=== PATIENT | female | born 1955 ===

== ENCOUNTER 2017-12-07 12:30 | Inpatient (IN) | payer OTHER ==
[~2017-12-07] VITALS: Ht 160 cm; Wt 79.8 kg
[2018-01-19] VITALS (14 sets, daily range): BP systolic 134–176; BP diastolic 60–88
[2018-01-19] MEDS ORDERED: LR 1000ml 1,000 ML IVLG SCH (06:31)
[2018-01-19] MEDS ORDERED: DiphenhydrAMINE 50mg/ml Inj IVP PRN (06:45)
[2018-01-19] MEDS ORDERED: Midazolam 2mg/2ml Inj IVP PRN (06:45)
[2018-01-19] MEDS ORDERED: Atropine Inj 1mg/10ml Syr IV PRN (06:45)
[2018-01-19] MEDS ORDERED: Acetaminophen (Non formulary) 100 ML IV ONE (06:45)
[2018-01-19] MEDS ORDERED: Metoclopramide 10mg/2ml Inj IVP PRN (06:45)
[2018-01-19] MEDS ORDERED: Ketorolac 30mg Inj IV PRN ×2 (06:45)
[2018-01-19] MEDS ORDERED: LORazepam Inj 2mg/ml 1ml IV PRN (06:45)
[2018-01-19] MEDS ORDERED: fentaNYL 100 mcg/2 mL IV PRN (06:45)
[2018-01-19] MEDS ORDERED: HYDROcodone/Acetamin 7.5/325 tab ORAL PRN ×2 (06:45→13:15)
[2018-01-19] MEDS ORDERED: Labetalol 5mg/ml 20ml vial IV PRN (06:45)
[2018-01-19] MEDS ORDERED: Norco 5mg/325mg tab ORAL PRN (06:45)
[2018-01-19] MEDS ORDERED: oxyCODONE HCL/Acetaminophen 5/325mg ORAL PRN (06:45)
[2018-01-19] MEDS ORDERED: Hydromorphone 0.5mg/0.5ml inj IVP PRN (06:45)
[2018-01-19] MEDS ORDERED: Thrombin 5000 units TOPIC ONE (09:09)
[2018-01-19] MEDS ORDERED: Bacitracin 50000 Units Vial IRRIG ONE (09:09)
[2018-01-19] MEDS ORDERED: Thrombin 5000 units spray kit TOPIC ONE (09:10)
[2018-01-19] MEDS ORDERED: Vancomycin 1gm inj IVPB ONE (09:10)
[2018-01-19] MEDS ORDERED: Gelfoam Absorbable 1gm powder pkt TOPIC ONE (09:11)
[2018-01-19] MEDS ORDERED: NS Irrig 1000ml IRRIG ONE (09:11)
[2018-01-19] MEDS ORDERED: LISINOPRIL20 MG ORAL (09:23)
[2018-01-19] MEDS ORDERED: METFORMIN HCL500 M1 ORAL (09:23)
[2018-01-19] MEDS ORDERED: SIMVASTATIN40 MG ORAL (09:23)
--- NOTE | 2018-01-19 09:26 | Anethesia Preoperative Eval ---
Anesthesia Pre-op PMH/ROS General Date of Evaluation: Jan 19, 2018 Time of Evaluation: 09:26 Anesthesiologist: Tex ASA Score: ASA 3 Mallampati Score Class I : Soft palate, uvula, fauces, pillars visible Class II: Soft palate, uvula, fauces visible Class III: Soft palate, base of uvula visible Class IV: Only hard plate visible Mallampati Classification: Class II Surgeon: Vince Diagnosis: Neck Pain Surgical Procedure: ACDF C5-6, C6-7 Anesthesia History: none Family History: no anesthesia problems Allergies: Coded Allergies: PENICILLINS (Verified Allergy, Severe, 01/19/18) HIVES AND ITCHING Medications: see eMAR Past Medical History Cardiovascular: Reports: HTN, other - HL Gastrointestinal/Genitourinary: Reports: GERD Endocrine: Reports: DM Other: obesity - BMI 32 PSxH Narrative: Cholecystectomy Anesthesia Pre-op Phys. Exam Physician Exam Last Vital Signs Date Time Temp Pulse Resp B/P (MAP) Pulse Ox O2 Delivery O2 Flow Rate FiO2 01/19/18 09:10 98.2 86 18 149/88 95 Room Air 98.2 Constitutional: NAD Neurologic: CN 2-12 intact Cardiovascular: RRR Respiratory: CTA Gastrointestinal: S/NT/ND Airway Exam Mallampati Score: Class II MO: limited ROM: limited Teeth: intact Anesthesia Pre-op A/P Risk Assessment & Plan Assessment: ASA 3 Plan: GA, BIS, GlideScope Go Status Change Before Surgery: No Pre-Antibiotics Dru Grams Ancef IV Given Within 1 Hr of Incision: Yes Time Given: 09:46 Elbert Nice MD Jan 19, 2018 09:26
--- NOTE | 2018-01-19 09:27 | Immediate Post-Op Evaluation ---
Immediate Post-Op Evalulation Immediate Post-Op Evalulation Procedure: ACDF C5-6, C6-7 Date of Evaluation: Jan 19, 2018 Time of Evaluation: 13:15 IV Fluids: 1000 LR Blood Products: 0 Estimated Blood Loss: 75 Urinary Output: 0 Blood Pressure Systolic: 172 Blood Pressure Diastolic: 76 Pulse Rate: 91 Respiratory Rate: 16 O2 Sat by Pulse Oximetry: 95 Temperature (Fahrenheit): 97.7 Pain Score (1-10): 3 Nausea: No Vomiting: No Complications 0 Patient Status: awake, reacts, patent, extubated, none Hydration Status: adequate Dru grams Ancef IV Given Within 1 Hr of Incision: Yes Time Given: 09:46 Elbert Nice MD Jan 19, 2018 09:27
--- NOTE | 2018-01-19 09:27 | Pre-Procedure Note/Attestation ---
Pre-Procedure Note/Attestation Complete Prior to Procedure Planned Procedure: right Procedure Narrative: C5-7 ACDF Indications for Procedure Pre-Operative Diagnosis: C5-7 stenosis Attestation I attest that I discussed the nature of the procedure; its benefits; risks and complications; and alternatives (and the risks and benefits of such alternatives ), prior to the procedure, with the patient (or the patient's legal customer development representative). I attest that, if there was a reasonable possibility of needing a blood transfusion, the patient (or the patient's legal customer development representative) was given the [facility] standardized written summary, pursuant to the [place] Blood Safety Act ([place] Health and Safety Code # 1645, as amended). I attest that I re-evaluated the patient just prior to the surgery and that there has been no change in the patient's H&P, except as documented below: Mani Clarke Jan 19, 2018 09:27
[2018-01-19] MEDS ORDERED: Glycopyrrolate 0.2mg/ml 1ml Vial ONE (09:30)
[2018-01-19] MEDS ORDERED: Lidocaine 1% Plain 30 ml INJ ONE (09:30)
[2018-01-19] MEDS ORDERED: Sterile Water Irrig 1000ml IRRIG ONE (09:30)
[2018-01-19] MEDS ORDERED: Lidocaine 1% MPF 10mg/ml 5ml ONE (09:30)
[2018-01-19] MEDS ORDERED: LR 1000ml ONE (09:30)
[2018-01-19] MEDS ORDERED: Zemuron 50mg/5ml Inj IV ONE (09:30)
[2018-01-19] MEDS ORDERED: Midazolam 2mg/2ml Inj ONE (09:30)
[2018-01-19] MEDS ORDERED: NS Irrig 1000ml ONE (09:30)
[2018-01-19] MEDS ORDERED: Neostigmine 1mg/ml 10ml Inj ONE (09:30)
[2018-01-19] MEDS ORDERED: fentaNYL 100 mcg/2 mL IV ONE (09:30)
[2018-01-19] MEDS ORDERED: Propofol 1,000mg/ 100ml btl IV ONE (09:30)
[2018-01-19] MEDS ORDERED: Bacitracin 50000 Units Vial ONE (12:23)
[2018-01-19] MEDS ORDERED: Naloxone 0.4mg/ml Inj IVP PRN (13:15)
--- NOTE | 2018-01-19 13:24 | Brief Operative Note ---
Immediate Post Operative Note Operative Note Pre-op Diagnosis: C5-7 stenosis Procedure: C5-7 ACDF Post-op Diagnosis: The same Post-op Diagnosis: same as pre-op Surgeon: Dr Clarke Cloth Mercerizing Supervisor: Dr Esquivel Anesthesiologist: Dr Leone Anesthesia: general Specimen: yes Complications: none Condition: stable Fluids: NA Estimated Blood Loss: volume - 50 ml Drains: none Implant(s) used?: Yes - Nexxt Spine Mani Clarke Jan 19, 2018 13:24
--- NOTE | 2018-01-19 14:47 | Diagnostic Imaging Report ---
Indication: Right upper extremity pain, intraoperative Technique: Intraoperative images Comparison: none Findings: Initial image demonstrates surgical tool projecting over the C5 vertebral body. Subsequent images demonstrate anterior fusion at C5-C7, with anterior hardware and disc spacers Impression: Intraoperative imaging, as described
[2018-01-19] MEDS: NovoLOG Insulin Flexpen SUBQ SCH ×2 (16:50→21:39)
[2018-01-19] MEDS: ceFAZolin sod 2 GM in D5W 110 ML IV SCH (17:39)
[2018-01-19] MEDS: Docusate 100mg cap ORAL SCH (18:00)
[2018-01-19] MEDS ORDERED: Atorvastatin 20mg tab ORAL SCH (21:00)
[2018-01-20] VITALS: BP 147/78
--- NOTE | 2018-01-20 00:30 | Operative Note - Dictated ---
DATE OF OPERATION: 01/19/2018 NOTE: POOR AUDIO INDICATION FOR SURGERY: The patient is a pleasant female, who presented with signs and symptoms of progressive cervical myelopathy secondary to severe cervical stenosis. Surgical and nonsurgical options were discussed. She requested surgical intervention. RISKS AND BENEFITS DISCUSSION: The patient was apprised about objectives, benefits, risks, and potential complications of the procedure including, but not limited to worsening of current status, possible need for further procedures, risk of infection, headache, CSF leak, possible spinal cord injury resulting in paralysis, coma, and even . No assurance was given whether these symptoms will improve following the procedure. Informed consent was obtained and secured in the chart after the patient voiced understanding of these risks and decided to proceed with the operation. PREOPERATIVE DIAGNOSES: 1. C5-C7 stenosis. 2. Cervical radiculopathy. 3. Cervical myelopathy. 4. Excessive anterior osteophyte overgrowth with dysphagia. POSTOPERATIVE DIAGNOSES: 1. C5-C7 stenosis. 2. Cervical radiculopathy. 3. Cervical myelopathy. 4. Excessive anterior osteophyte overgrowth with dysphagia. OPERATION PERFORMED: 1. C5-C6 and C6-C7 anterior diskectomy, decompression, and arthrodesis. 2. Anterior osteotomies beyond what is required to perform a diskectomy at C5, C6, and C7. 3. Application of intervertebral body mechanical device at C5-C6 and C6-C7 using X-spine instrumentation. 4. Anterior titanium instrumentation at C5, C6, and C7 using X-spine instrumentation. 5. Application of intervertebral pins for musculoskeletal traction into C5, C6, and C7. 6. Use of allograft using [place]. 7. Use of autograft. 8. Microscope. 9. Fluoroscope. 10. Neuromonitoring. 11. Extra time was spent during positioning and dissection due to the patient's increased BMI. SURGEON: Mani Clarke D.O. SUPERVISOR GROWER: Dr. Esquivel. ANESTHESIA: HUMANITIES AND LANGUAGES PROFESSOR. ESTIMATED BLOOD LOSS: Approximately 50 mL. FINDINGS: There was severe anterior osteophyte overgrowth and also there was collapse of disk height and severe stenosis both centrally and in the foramina at C5-C6 and C6-C7 levels. SPECIMEN SENT: Osteophyte disk complexes removed at C5-C6 and C6-C7. COMPLICATIONS: None. TECHNIQUE: The patient was transferred to the operating room. She was then sedated and intubated by the Anesthesia team. She was transferred to the operating table in supine position. Preoperative antibiotics were give. Eyes were taped shut to prevent corneal abrasion. placed over the lower body to maintain control of core body temperature. All pressure points were carefully padded. A roll was placed in between the shoulder blades to create extension. Neuromonitoring took place and appropriately positioned. The baselines were obtained. Extra time was spent during dissection due to the patient's increased BMI. C-arm was brought in and incision was turned out using imaging. Skin was prepped and draped in the standard surgical fashion. Time-out was taken. was performed with a scalpel blade and dissection was carried down to the platysma muscle and taken down through the avascular plane of the prevertebral fascia. The carotid artery was palpated and confirmed to be lateral. The prevertebral fascia was then opened and longus colli muscle was visualized and dissected laterally. Extra time was spent during dissection due to the patient's increased BMI and excessive amount of anterior osteophytes. Self-retaining retractors were then placed underneath the longus colli muscles to C5-C6 disk space. It was then confirmed with fluoroscope and microscope was brought in at this point. First anterior osteotomies and were carried out at C5, C6, and C6 vertebral bodies and joint levels. Once done so at the C6-C7 level, diskectomy, ostectomy, and taken down of the posterior longitudinal ligament including foraminotomies were completed. Excellent decompression of nerve root and spinal cord was then confirmed. C6-C7 interspace was sized appropriately and an intervertebral titanium cage, which was filled with allograft and autograft was inserted. The same process was then repeated for the C5-C6 level. Once completed, anterior titanium and instrumentation of screws and plates were placed into C5, C6, and C7 vertebral bodies. X-ray fluoroscopy was then used to confirm excellent position of all instrumentation. The surgical site was then copiously irrigated with antibiotic solution and excellent hemostasis maintained. Instrumentation was inspected and confirmed to be in excellent positioning. The microscope and retractors were then removed. pins were also removed. The platysma layer and subcutaneous layers were then reapproximated. The skin was then closed with absorbable suture and skin glue was applied to the final layer. All needle count, sponge count, and instrument counts were correct at the end of the case x2. The neuromonitoring signals were stable throughout the entire case. The patient was then placed into the cervical collar and transferred to recovery in stable condition. The patient's family was updated after the surgery. The patient was examined after surgery and recovery and was able to move all extremities without difficulty. Mani Clarke MD DR: Hanna JOB#: [id number] CC:
[2018-01-20] MEDS: ceFAZolin sod 2 GM in D5W 110 ML IV SCH ×2 (01:46→10:20)
--- NOTE | 2018-01-20 02:30 | History and Physical Report ---
DATE OF ADMISSION: 01/19/2018 HISTORY OF PRESENT ILLNESS: The patient is an unfortunate 62-year-old female, who was involved in a slip and fall. She has cervical disk disease with cervical radiculopathy, status post complex anterior cervical diskectomy and fusion. I was asked to evaluate this patient for postoperative evaluation. This unfortunate female has history of diabetes, on metformin; history of hypertension, on medication; and hyperlipidemia. She denies any nausea, vomiting, or diarrhea. She denies any palpitations, paroxysmal nocturnal dyspnea, or orthopnea. She denies any cough. PAST MEDICAL HISTORY: 1. Type 2 diabetes. 2. Obesity. 3. Posttraumatic headache. 4. Cervical radiculopathy. MEDICATIONS: 1. Lipitor. 2. Lisinopril. 3. Metformin. ALLERGIES: No known drug allergies. FAMILY HISTORY: Noncontributory. PHYSICAL EXAMINATION: GENERAL: A well-developed, well-nourished female. Scar, anterior lower leg. VITAL SIGNS: Blood pressure 142/78, respiratory rate 18, pulse 96, and she is afebrile. LUNGS: Clear to auscultation. HEART: S1 and S2. Regular rate and rhythm. ABDOMEN: Soft. Positive bowel sounds. EXTREMITIES: No clubbing or cyanosis. LABORATORY DATA: Accu-Cheks postoperatively at 1058 hours was 161, at 1059 hours was 161 again, and at 1459 hours was 163. IMPRESSION: This unfortunate female : 1. Diabetes. 2. Hypertension. 3. ACDF. 4. The patient is status post surgery. 5. Preoperative antibiotic with Ancef has been given. 6. Postoperative DVT prophylaxis to be done. 7. Early ambulation. 8. Pain control. 9. Monitor blood sugar. 10. Accu-Chek with insulin sliding scale. 11. ADA diet. 12. Follow closely. Miguelito Root M.D. DR: Abdulaziz JOB#: [id number] CC:
[2018-01-20 04:00] VITALS: BP 151/80
[2018-01-20] MEDS: NovoLOG Insulin Flexpen SUBQ SCH ×2 (06:30→12:33)
[2018-01-20 08:00] VITALS: BP 154/54
--- NOTE | 2018-01-20 08:35 | 48 Hour Post Anesthesia Eval ---
Post Anesthesia Evaluation Procedure: ACDF C5-6, C6-7 Date of Evaluation: Jan 20, 2018 Time of Evaluation: 08:00 Blood Pressure Systolic: 154 0: 54 Pulse Rate: 91 Respiratory Rate: 20 Temperature (Fahrenheit): 98 O2 Sat by Pulse Oximetry: 97 Airway: patent Nausea: No Vomiting: No Pain Intensity: 0 Hydration Status: adequate Cardiopulmonary Status: at baseline Mental Status/LOC: patient returned to baseline Post-Anesthesia Complications: 0 Follow-up care needed: N/A - further care as per primary team CRISTIANE PALOMARES M.D. Jan 20, 2018 08:34
[2018-01-20] MEDS: Docusate 100mg cap ORAL SCH (08:43)
[2018-01-20] MEDS ORDERED: metFORMIN 500mg tab ORAL SCH (09:00)
[2018-01-20] MEDS ORDERED: Lisinopril 20mg tab ORAL SCH (09:00)
[2018-01-20 12:00] VITALS: BP 144/78
[2018-01-20] MEDS ORDERED: Tubing IV Secondary IV ONE (14:32)
--- NOTE | 2018-01-21 13:53 | Discharge Summary ---
Discharge Summary Hospital Course Date of Admission Jan 19, 2018 at 08:50 Date of Discharge Jan 20, 2018 at 15:25 Admitting Diagnosis HPI Zamzam Mcdowell is a 62 year old female who was admitted on Jan 19, 2018 at 08:50 for Cervicalgia Hospital Course [id number] Discharge Discharge Disposition Patient was discharged to Home (01) Nazanin Spring NP Jan 21, 2018 13:53
--- NOTE | 2018-01-22 04:15 | Discharge Summary 2 SIG ---
DATE OF ADMISSION: 01/19/2018 DATE OF DISCHARGE: 01/20/2018 BRIEF HOSPITAL COURSE: The patient is a 62-year-old female, who was involved in a slip and fall. She had cervical disk disease with cervical radiculopathy. She underwent complex anterior cervical diskectomy with fusion. Postoperatively, she was admitted for pain management. She was given IV hydration. Home medications were resumed. Diet was advanced. She underwent PT and OT. She had good pain control and vitals were stable. She was ambulating well. She was then cleared for discharge home. She was provided soft collar to be worn p.r.n. She was eventually discharged home. DISPOSITION: The patient was discharged home. FINAL DIAGNOSES: 1. Progressive cervical myelopathy, secondary to severe cervical stenosis. 2. Status post C5-C6 and C6-C7 anterior diskectomy, decompression, and arthrodesis, refer to operative report. DISCHARGE INSTRUCTIONS: Follow up with surgeon in a week. Mani Clarke M.D. I have been assigned to dictate discharge summary on this account and I was not involved in the patient's management. Nazanin Spring N.P. DR: Colby JOB#: [id number] CC:
== END 2018-01-20 15:25 | disposition home or self-care (01) | DRG 472 ==
LOC: SDSOVERFLO 01-19 08:50 → 3E 01-19 14:25
PROC: 0RB30ZZ Excision of Cervical Vertebral Disc, Open Approach (ICD-10-PCS; principal; 2018-01-19 07:30)
PROC: 4A11X4G Monitoring of Peripheral Nervous Electrical Activity, Intraoperative, External Approach (ICD-10-PCS; principal; 2018-01-19 07:30)
PROC: 0RG20A0 Fusion of 2 or more Cervical Vertebral Joints with Interbody Fusion Device, Anterior Approach, Anterior Column, Open Approach (ICD-10-PCS; principal; 2018-01-19 07:30)
DX: M48.02 Spinal stenosis, cervical region (principal); G95.9 Disease of spinal cord, unspecified; M54.12 Radiculopathy, cervical region; E11.9 Type 2 diabetes mellitus without complications; E66.9 Obesity, unspecified; I10 Essential (primary) hypertension; Z91.81 History of falling; M25.78 Osteophyte, vertebrae; R13.19 Other dysphagia; E78.5 Hyperlipidemia, unspecified; K21.9 Gastro-esophageal reflux disease without esophagitis; Z68.31 Body mass index [BMI] 31.0-31.9, adult
CPT/HCPCS: 36415; 72040; 76001; 82962; 86850; 86870; 86900; 86901; 86904; 87081; 94003; 94150; J1815; J2250; J2405; J2710